=== PATIENT | male | born 1990 | race Two or more races ===

== ENCOUNTER 2017-07-10 09:56 | Emergency (ER) | payer OTHER ==
[2017-07-10 10:03] VITALS: BP 113/76; PULSE 68; TEMP 97.6; BMI 21.2
--- NOTE | 2017-07-10 10:47 | PDOC ---
Attending Attestation - Resident Resident Name: Alisha Nath - ED Attending Attestation I have performed the following: I have examined & evaluated the patient, The case was reviewed & discussed with the resident, I agree w/resident's findings & plan, Exceptions are as noted - HPI HPI: 07/10/17 10:46 Groin Pain - Physicial Exam PE: 07/10/17 10:46 VSS NONTOXIC NAD - Medical Decision Making 07/10/17 10:[address] Alisha Nath's Assessment and Plan
--- NOTE | 2017-07-10 11:04 | PDOC ---
History of Present Illness - General Chief Complaint: Pain Stated Complaint: PAIN Time Seen by Provider: 07/10/17 10:21 History Source: Patient - History of Present Illness Initial Comments: 07/10/17 11:21 Patient is a 27 y.o. male with no PMH who presents with 2-3 day h/o L sided lower quadrant abdominal cramping that radiates down into his groin. Patient endorses some associated subjective fever and chills but denies any vomiting, diarrhea, constipation. Patient notes he had a similar pain 1 month previous that lasted 1-2 days and was self resolving. Patient notes he is in a sexually monagamous relationship with 1 partner and has not been tested for STI's in the last year. NKDA Surgical: Appendectomy (2008) Social: denies cigarettes, social alcohol, marijuana daily PMD: None Past History - Past Medical History Allergies/Adverse Reactions: Allergies Allergy/AdvReac Type Severity Reaction Status Date / Time cat dander Allergy Verified 07/10/17 10:01 Home Medications: Ambulatory Orders Acetaminophen [Tylenol Extra Strength] 500 mg PO BID #10 tablet 07/10/17 Doxycycline Hyclate [Vibramycin -] 100 mg PO BID #20 cap 07/10/17 - Surgical History Appendectomy: Yes - Suicide/Smoking/Psychosocial Hx Smoking History: Never smoked Hx Alcohol Use: No Drug/Substance Use Hx: No Substance Use Type: None Review of Systems - Review of Systems Constitutional: Yes: Chills, Fever Respiratory: No: Cough, Shortness of Breath Cardiac (ROS): No: Chest Pain ABD/GI: Yes: Abdominal cramping. No: Constipated, Diarrhea, Nausea, Vomiting : No: Burning, Dysuria, Hematuria *Physical Exam - Vital Signs Last Vital Signs Temp Pulse Resp BP Pulse Ox 97.6 F 68 18 113/76 100 07/10/17 10:02 07/10/17 10:02 07/10/17 10:02 07/10/17 10:02 07/10/17 10:02 - Physical Exam General Appearance: Yes: Nourished, Appropriately Dressed Neck: positive: Trachea midline, Supple Respiratory/Chest: positive: Lungs Clear Cardiovascular: positive: S1, S2 Gastrointestinal/Abdominal: positive: Normal Bowel Sounds, Soft, Tenderness ( LLQ TTP). negative: Distended, Guarding, Rebound, Hernia Male Genitalia: positive: normal genitalia, epididymus tender. negative: testicular mass Neurologic: positive: Fully Oriented, Alert ED Treatment Course - LABORATORY CBC & Chemistry Diagram: 07/10/17 11:30 07/10/17 11:30 Medical Decision Making - Medical Decision Making 07/10/17 13:28 Patient is a 27 y.o. male who presents with a 2-3 day h/o LLQ abdominal cramping that radiates to groin. Initial DDx is for epididmyitis 2/2 to STI vs. UTI. PLAN: 1. UA 2. STI testing CBC shows no leukocytosis. Patient's UA negative for UTI. HIV negative, RPR negative, G/C pending. Patient to be prophylactically treated with Azithromycin + Ceftriaxone. Patient provided referral to primary care ([facility]) and discharged home with return precautions. *DC/Admit/Observation/Transfer Diagnosis at time of Disposition: Epididymitis - Discharge Dispostion Disposition: HOME Condition at time of disposition: Good Admit: No - Prescriptions Prescriptions: Acetaminophen [Tylenol Extra Strength] 500 mg PO BID #10 tablet Doxycycline Hyclate [Vibramycin -] 100 mg PO BID #20 cap - Patient Instructions Printed Discharge Instructions: DI for Epididymitis Additional Instructions: A prescription has been called to your pharmacy - please complete the entire 10 day course of antibiotics. Please return to the Emergency Department for any worsening or concerning symptoms. - Post Discharge Activity Forms/Work/School Notes: Back to Work
[2017-07-10 11:37] LABS: BASOPHIL 1.1 % (0-2.0); MCH 31.1 pg (25.7-33.7); MCHC 34.6 g/dl (32.0-35.9); MEAN CELL VOLUME 90.1 fl (80-96); MEAN PLT VOLUME 9.1 fl (7.5-11.1); NEUTROPHILS 69.9 % (42.8-82.8); PLATELET COUNT 264 K/MM3 (134-434); RDW 12.8 % (11.9-15.9); WHITE BLOOD COUNT 8.7 K/mm3 (4.0-10.0)
[2017-07-10 12:01] LABS: ALBUMIN 4.4 g/dl (3.4-5.0); ANION GAP 4 (8-16); BILIRUBIN,TOTAL 0.4 mg/dL (0.2-1.0); CALCIUM 8.5 mg/dL (8.5-10.1); CO2 28 mmol/L (21-32); CREATININE 1.4 mg/dL (0.7-1.3); GLUCOSE,RANDOM 112 mg/dL (74-106); SGOT/AST 19 U/L (15-37); SGPT/ALT 22 U/L (12-78); TOT PROT 7.6 g/dl (6.4-8.2)
[2017-07-10 12:02] LABS: ALK PHOS 61 U/L (45-117)
[2017-07-10 12:29] LABS: HIV 1 & 2 AB NEGATIVE; HIV 1 AGp24 NEGATIVE
[2017-07-10 12:34] LABS: URINE APPEARANCE CLEAR; URINE BILIRUBIN NEGATIVE (NEGATIVE); URINE BLOOD NEGATIVE (NEGATIVE); URINE COLOR LTYELLOW; URINE GLUCOSE (UA) NEGATIVE (NEGATIVE); URINE KETONE NEGATIVE (NEGATIVE); URINE NITRITE NEGATIVE (NEGATIVE); URINE PROTEIN NEGATIVE (NEGATIVE); URINE UROBILINOGEN NEGATIVE mg/dL (0.2-1.0)
[2017-07-10] MEDS ORDERED: CEFTRIAXONE 1 GM in DEXTROSE 5%-WATER - 50 ML IVPB ONE (13:13)
[2017-07-10] MEDS ORDERED: AZITHROMYCIN 1 GM PACKET PO ONE (13:14)
[2017-07-10 16:58] LABS: URINE LEUK ESTERASE Negative (NEGATIVE)
== END 2017-07-10 14:20 | disposition home or self-care (01) ==
LOC: JER 09:56
DX: N45.1 Epididymitis (principal)
CPT/HCPCS: 36415; 80053; 81003; 85025; 86593; 87086; 87389; 87491; 87591; 99281-25